=== PATIENT | male | born 1970 | race Caucasian/White ===

== ENCOUNTER → 2018-04-26 | Outpatient (CLI) | payer BC ==
--- NOTE | 2018-04-27 09:11 | Diagnostic Imaging Report ---
EXAM: Scrotal Ultrasound INDICATION: Atrophy of testis COMPARISON: None TECHNIQUE: Transverse and longitudinal images were obtained of the scrotum with grayscale imaging, color Doppler and spectral waveform analysis. FINDINGS: Right testis: Size: 3.8 x 2.0 x 2.2 cm, normal in size. Echogenicity: Normal Mass/Cysts: None Left testis: Size: 4.0 x 1.8 x 2.5 cm, normal in size. Echogenicity: Normal Mass/Cysts: None Epididymis: Appearance: Normal in size without increased vascularity. Mass/Cysts: None Extratesticular: Masses: None Fluid collections: Small left hydrocele and small left varicocele. Doppler: Normal arterial flow to both testes and symmetrical flow on color Doppler evaluation is seen. No evidence of testicular torsion. IMPRESSION: 1. No evidence of testicular torsion. The testicles are normal in appearance and homogeneous in echotexture. 2. Small left hydrocele and small left varicocele. Signed by: Dr. Vasiliy Samuel M.D. on 04/27/2018 9:07 AM
== END ==
LOC: US 16:27
PROVIDERS: ATTEND Urology
DX: N50.0 Atrophy of testis (principal)
CPT/HCPCS: 76870; 93976

== ENCOUNTER → 2019-03-15 | Outpatient (CLI) | payer BC ==
--- NOTE | 2019-03-15 16:28 | Diagnostic Imaging Report ---
Exam: Testicular ultrasound. Clinical History: Hydrocele Comparison: Testicular ultrasound of 04/26/2018 Findings: Grayscale and color Doppler evaluation of the testicles. Both testes are normal in echogenicity and size without intratesticular mass. Normal bilateral blood flow. Trace bilateral hydrocele. Bilateral varicoceles. The right testicle measures 4.0 x 1.5 x 2.4 cm. The right epididymis measures 0.9 x 0.6 x 0.6 cm. The left testicle measures 4.2 x 2.0 x 2.7 cm. The left epididymis measures 1.0 x 0.6 x 0.7 cm. Impression: No evidence of testicular torsion. Trace bilateral hydrocele. Bilateral varicoceles. Signed by: Yudith Whitten MD on 03/15/2019 4:24 PM
== END ==
LOC: US 11:08
PROVIDERS: ATTEND Urology
DX: N43.3 Hydrocele, unspecified (principal)
CPT/HCPCS: 76870; 93976

== ENCOUNTER → 2020-06-26 | Day surgery (SDC) | payer BC ==
[~2020-06-26] MED LIST: ABILIFY5 MG PO; DIVALPROEX SOD250 MG; DIVALPROEX SOD500 MG; FENTANYL CITRATE/PF 100MCG/2 ML INJ ONE; HYOSCYAMINE 0.125 MG TAB ONE; LEVOTHYROXINE75 MCG PO; LIDOCAINE HCL 2% LOCAL INJ 5 ML SDV VIAL INJ ONE; MIDAZOLAM HCL 5 MG/ML VIAL ONE; PROPOFOL IV EMULSION 10 MG/ML 20 ML VIAL ONE; QUETIAPINE FUM100 MG PO; SERTRALINE HCL100 MG PO
[2020-06-26 14:06] VITALS: BP 111/66
--- NOTE | 2020-06-26 18:19 | Operative Report ---
DATE OF PROCEDURE: 06/26/2020 SURGEON: Ifeanyi Jj MD PROCEDURE: Colonoscopy with polypectomy. INDICATIONS FOR COLONOSCOPY: Positive occult blood in stools. MEDICATIONS: The patient was done under MAC, please see anesthesiologist's note. PROCEDURE IN DETAIL: With the patient in left lateral decubitus position, a flexible fiberoptic Olympus colonoscope was inserted into the rectum with ease and advanced all the way to the cecum. It was then withdrawn slowly. Mucosa overlying the cecum and ascending colon appeared to be within normal limits. Two minute polyps were cold biopsied from the transverse colon. The descending colon grossly was unremarkable. One polyp was hot biopsied from the sigmoid colon. A diffuse intense erythema and low-grade edema were noted in the rectum and biopsies were obtained. The scope was then retroflexed into the distal rectum and small internal hemorrhoids were noted, none of which was actively bleeding. The scope was then straightened out, it was subsequently withdrawn. The patient tolerated the procedure well. IMPRESSION: 1. Transverse colon polyps x2, cold biopsied. 2. Sigmoid colon polyp x1, hot biopsied. 3. Proctitis, mild, biopsied. 4. Internal hemorrhoids, none actively bleeding. PLAN: Follow up histology. Initiate high-fiber, low-fat diet. Initiate high-fiber supplement. Start VSL #3 one p.o. daily. The patient might benefit from a followup colonoscopy in 3 years. Ifeanyi Jj MD [facility] [place] /[id number] cc: Shar Santana MD
== END | disposition home or self-care (01) ==
LOC: OR 11:22
PROVIDERS: ATTEND Internal Medicine Gastroenterology
DX: R19.5 Other fecal abnormalities (principal); D12.3 Benign neoplasm of transverse colon; D12.5 Benign neoplasm of sigmoid colon; K62.89 Other specified diseases of anus and rectum; L29.0 Pruritus ani; K64.8 Other hemorrhoids; R14.0 Abdominal distension (gaseous); G47.33 Obstructive sleep apnea (adult) (pediatric); R00.1 Bradycardia, unspecified; R03.0 Elevated blood-pressure reading, without diagnosis of hypertension; F32.9 Major depressive disorder, single episode, unspecified; Z01.810 Encounter for preprocedural cardiovascular examination; Z01.812 Encounter for preprocedural laboratory examination; Z20.828 Contact with and (suspected) exposure to other viral communicable diseases; Z68.31 Body mass index [BMI] 31.0-31.9, adult
CPT/HCPCS: 45380; 45384; 93005; J2001; J2250; J2704; J3010; U0002; 45378

== ENCOUNTER 2023-02-02 13:32 | Emergency (ER) | payer BC ==
[~2023-02-02] VITALS: Ht 180.3 cm; Wt 107.0 kg
[~2023-02-02 13:32] MED LIST changes: -FENTANYL CITRATE/PF 100MCG/2 ML INJ ONE; -HYOSCYAMINE 0.125 MG TAB ONE; -LIDOCAINE HCL 2% LOCAL INJ 5 ML SDV VIAL INJ ONE; -MIDAZOLAM HCL 5 MG/ML VIAL ONE; -PROPOFOL IV EMULSION 10 MG/ML 20 ML VIAL ONE
[2023-02-02 14:06] VITALS: O2SAT 98
[2023-02-02] MEDS ORDERED: DEXAMETHASONE SOD PHOS 10 MG/1 ML VIAL ONE (14:10)
[2023-02-02] MEDS ORDERED: CYCLOBENZAPRINE HCL 10 MG TAB ONE (14:10)
[2023-02-02] MEDS ORDERED: NAPROXEN 250 MG TAB ONE (14:11)
[2023-02-02] MEDS ORDERED: CYCLOBENZAPRINE HCL 10 MG TAB PO ONE (14:15)
[2023-02-02] MEDS ORDERED: DEXAMETHASONE SOD PHOS 10 MG/1 ML VIAL IV ONE (14:15)
[2023-02-02] MEDS ORDERED: NAPROXEN 250 MG TAB PO ONE (14:30)
[2023-02-02] MEDS ORDERED: CYCLOBENZAPRINE10 MG PO (15:28)
[2023-02-02] MEDS ORDERED: PREDNISONE50 MG PO (15:28)
[2023-02-02] MEDS ORDERED: IBUPROFEN600 MG PO (15:28)
== END 2023-02-02 15:39 | disposition home or self-care (01) ==
LOC: ER 13:56
DX: M54.50 Low back pain, unspecified (principal); M62.830 Muscle spasm of back; F41.9 Anxiety disorder, unspecified
CPT/HCPCS: 99282; J1100